=== PATIENT | female | born 1980 | race Caucasian/White ===

== ENCOUNTER → 2017-02-21 | Outpatient (CLI) | payer BC ==
[~2017-02-21] MED LIST: ADVIL200 MG PO; CLARITIN10 MG PO; DECADRON1 MG PO; DECADRON4 MG PO; DILAUDID 2MG(HYD2 MG PO; KEPPRA LIQU100 MG/ML PO; PEPCID20 MG PO; TYLENOL/COD#31 TAB PO
== END | disposition disaster alternative care site (69) ==
LOC: GRAD 02-14 09:00
DX: S06.360A Traumatic hemorrhage of cerebrum, unspecified, without loss of consciousness, initial encounter (principal); G93.89 Other specified disorders of brain; J34.89 Other specified disorders of nose and nasal sinuses; Z98.890 Other specified postprocedural states; X58.XXXA Exposure to other specified factors, initial encounter